=== PATIENT | female | born 1990 | race Caucasian/White ===

== ENCOUNTER 2018-05-26 09:50 | Emergency (ER) | payer OTHER, BC ==
[~2018-05-26] VITALS: Ht 157.5 cm; Wt 65.8 kg
--- OUTSIDE RECORDS SUMMARY | 2018-05-26 09:56 | XMS REPORT ---
Author Author TORO SELF Organization [employer] Address Unknown Phone Unavailable Care Team Providers Care Storm Door Maker Name Role Phone TORO SELF CP Unavailable Allergies No Known Allergies Problems Problem Type Condition Code Onset Dates Condition Status Assessment Right upper quadrant abdominal pain R10.11 Active Medications No Known Medications Results No Known Results Summary Purpose [employer] Submission
--- OUTSIDE RECORDS SUMMARY | 2018-05-26 09:56 | XMS REPORT ---
Author Author TORO SELF [facility] [employer] Address Unknown Phone Unavailable Care Team Providers Care Pipeline Operator Name Role Phone TORO SELF CP Unavailable Allergies, Adverse Reactions, Alerts Substance Reaction Event Type N.K.D.A. Info Not Available Non Drug Allergy Problems Problem Type Condition Code Onset Dates Condition Status Assessment Right upper quadrant abdominal pain R10.11 Active Assessment Epigastric pain R10.13 Active Medications No Known Medications Procedures Procedure Coding System Code Date Office Visit, New Pt., Level 3 CPT-4 22765 Jan 21, 2015 IMMUNOASSAY,INFECTIOUS AGENT CPT-4 65044 Jan 21, 2015 Vital Signs Date/Time: Jan 21, 2015 Temperature 98.9 F Weight 143.8 lbs Height 63 in BMI 25.47 Index Blood Pressure Diastolic 76 mmHg Blood Pressure Systolic 116 mmHg Cardiac Monitoring Heart Rate 112 bpm Results Name Result Date Reference Range Unit Abnormality Flag H PYLORI (IN HOUSE) Summary Purpose [employer] Submission
--- OUTSIDE RECORDS SUMMARY | 2018-05-26 09:56 | XMS REPORT | Continuity of Care Document ---
Author Author [facility] Organization [facility] Address Unknown Phone Unavailable Allergies Active Description Code Type Severity Reaction Onset Reported/Identified Relationship to Patient Clinical Status Yes No Known Drug Allergies [id number] Drug Allergy Unknown N/A 02/05/2015 Medications There is no data. Problems Date Dx Coded Attending Type Code Diagnosis Diagnosed By 01/30/2015 MADLFAUSTOA L SALES ENABLEMENT LEAD Ot R10.11 02/13/2015 MADL, TORO L SALES ENABLEMENT LEAD Ot R10.11 02/13/2015 MADL, TORO L SALES ENABLEMENT LEAD Ot R10.11 02/13/2015 MADL, TORO L SALES ENABLEMENT LEAD Ot R10.11 02/24/2015 MADL, TORO L SALES ENABLEMENT LEAD Ot R10.11 02/24/2015 MADL, TORO L SALES ENABLEMENT LEAD Ot R10.11 Procedures There is no data. Results There is no data. Encounters ACCT No. Visit Date/Time Discharge Status Pt. Type Provider Facility Loc./Unit Complaint [id number] 02/05/2015 10:05:00 02/05/2015 23:59:59 CLS Outpatient MADL, TORO L SALES ENABLEMENT LEAD [facility] CARD [id number] 01/27/2015 08:52:00 01/27/2015 23:59:59 CLS Outpatient MADL, TORO L SALES ENABLEMENT LEAD [facility] RAD
[2018-05-26] MEDS ORDERED: ACETAMINOPHEN 500 MG TAB (TYLENOL) PO ONE (10:45)
--- NOTE | 2018-05-26 10:51 | Diagnostic Imaging Report ---
Bilateral hand. INDICATION: Hand pain. Three views of each hand were obtained. There are no prior studies available for comparison. There is no fracture, dislocation or acute bony abnormality evident. The soft tissues are unremarkable. There is no radiopaque foreign body identified. IMPRESSION: There is no evidence for an acute bony abnormality of either hand. Dictated by: Dictated on workstation # [id number]
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
[2018-05-26 11:30] VITALS: BP 123/75
== END 2018-05-26 11:30 | disposition home or self-care (01) ==
LOC: EDUNIT# 09:50 → ER FS 09:52
DX: S60.221A Contusion of right hand, initial encounter (principal); S80.12XA Contusion of left lower leg, initial encounter; S80.11XA Contusion of right lower leg, initial encounter; S60.222A Contusion of left hand, initial encounter; F41.9 Anxiety disorder, unspecified; F17.210 Nicotine dependence, cigarettes, uncomplicated; V49.40XA Driver injured in collision with unspecified motor vehicles in traffic accident, initial encounter
CPT/HCPCS: 84703

== ENCOUNTER 2021-02-24 19:13 | Emergency (ER) | payer BC ==
[~2021-02-24] VITALS: Ht 162 cm; Wt 58.6 kg
--- NOTE | 2021-02-24 19:35 | ED Abdominal Pain ---
General Chief Complaint: Back Problems Stated Complaint: LOWER BACK PAIN,DIARRHEA Source of Information: Patient Exam Limitations: No Limitations History of Present Illness Date Seen by Provider: Feb 24, 2021 Time Seen by Provider: 19:14 Initial Comments 30-year-old female with no significant past medical history coming in due to 1 week of throbbing lower back pain that is her bilateral flanks, some vaginal bleeding, and lower abdominal cramping. She says she is had an IUD in place for over 4 years, and she does not usually have periods. She says it feels somewhat like menstruation, and somewhat like a UTI. Has had some intermittent nonbloody diarrhea. Her vaginal bleeding has slowed down significantly over the past couple of days. Denies any nausea, vomiting, weakness, numbness, chest pain, shortness of breath, cough, fever, chills, dysuria, or any other concerns. Allergies and Home Medications Allergies Coded Allergies: No Known Drug Allergies (Unverified , 05/26/18) Patient Home Medication List Home Medication List Reviewed: Yes Review of Systems Review of Systems Constitutional: No chills, No fever EENTM: No Blurred Vision Respiratory: Denies Cough Cardiovascular: Denies Chest Pain Gastrointestinal: Abdominal Pain, Diarrhea; Denies Nausea, Denies Vomiting Genitourinary: No Symptoms Reported Musculoskeletal: no symptoms reported Skin: no symptoms reported Psychiatric/Neurological: No Symptoms Reported Endocrine: No Symptoms Reported Hematologic/Lymphatic: No Symptoms Reported All Other Systems Reviewed Negative Unless Noted: Yes Past Cumtook-Uixdqa-Joionw Hx Patient Social History Tobacco Use?: Yes Tobacco type used: Cigarettes Smoking Status: Current Everyday Smoker Use of E-Cig and/or Vaping dev: No Substance use?: No Alcohol Use?: Yes Alcohol type: Beer, Hard Liquor, Wine Alcohol Frequency: Rarely Pt feels they are or have been: No Immunizations Up To Date Influenza Vaccine Up-to-Date: No; Not Current Seasonal Allergies Seasonal Allergies: No Past Medical History Surgeries: Yes Gallbladder, Vasectomy Respiratory: No Cardiac: No Neurological: No Genitourinary: No Gastrointestinal: No Musculoskeletal: No Endocrine: No HEENT: No Cancer: No Psychosocial: Yes Anxiety Integumentary: No Blood Disorders: No Adverse Reaction/Blood Tranf: No Physical Exam Vital Signs Vital Signs - First Documented 02/24/21 19:19 Temp 36.8 Pulse 78 Resp 16 B/P (MAP) 128/81 (97) Pulse Ox 99 O2 Delivery Room Air Capillary Refill : Height/Weight/BMI Height: 5'2.00" Weight: 145lbs. oz. 65.757874ri; BMI Method:Stated General Appearance: WD/WN, no apparent distress HEENT: PERRL/EOMI, normal ENT inspection, pharynx normal Neck: non-tender, full range of motion, supple, normal inspection Respiratory: chest non-tender, lungs clear, normal breath sounds, no respiratory distress, no accessory muscle use Cardiovascular: regular rate, rhythm, no edema, no murmur Gastrointestinal: normal bowel sounds, non tender; No distended, No guarding, No rebound Extremities: normal range of motion, non-tender, normal inspection, no pedal edema, no calf tenderness, normal capillary refill Back: normal inspection, no CVA tenderness, no vertebral tenderness Neurologic/Psychiatric: no motor/sensory deficits, alert, normal mood/affect Skin: normal color, warm/dry Lymphatic: no adenopathy Progress/Results/Core Measures Results/Orders Lab Results Laboratory Tests Test 02/24/21 19:21 02/24/21 19:38 Range/Units Urine Color YELLOW Urine Clarity SL CLOUDY Urine pH 6.5 5-9 Urine Specific [place] 1.020 1.016-1.022 Urine Protein NEGATIVE NEGATIVE Urine Glucose (UA) NEGATIVE NEGATIVE Urine Ketones NEGATIVE NEGATIVE Urine Nitrite NEGATIVE NEGATIVE Urine Bilirubin NEGATIVE NEGATIVE Urine Urobilinogen 0.2 < = 1.0 MG/DL Urine Leukocyte Esterase TRACE H NEGATIVE Urine RBC (Auto) 2+ H NEGATIVE Urine RBC >100 H /HPF Urine WBC 2-5 /HPF Urine Squamous Epithelial Cells 5-10 /HPF Urine Crystals PRESENT H /LPF Urine Amorphous Sediment MOD JAYLYN URATES H /LPF Urine Bacteria FEW H /HPF Urine Casts NONE /LPF Urine Mucus LARGE H /LPF Urine Culture Indicated YES Urine Test NEGATIVE NEGATIVE White Blood Count 10.7 4.3-11.0 10^3/uL Red Blood Count 4.76 3.80-5.11 10^6/uL Hemoglobin 14.4 11.5-16.0 g/dL Hematocrit 42 35-52 % Mean Corpuscular Volume 87 80-99 fL Mean Corpuscular Hemoglobin 30 25-34 pg Mean Corpuscular Hemoglobin Concent 35 32-36 g/dL Red Cell Distribution Width 13.1 10.0-14.5 % Platelet Count 277 130-400 10^3/uL Mean Platelet Volume 10.1 9.0-12.2 fL Neutrophils (%) (Auto) 52 42-75 % Lymphocytes (%) (Auto) 38 12-44 % Monocytes (%) (Auto) 6 0-12 % Eosinophils (%) (Auto) 4 0-10 % Basophils (%) (Auto) 1 0-10 % Neutrophils # (Auto) 5.5 1.8-7.8 X 10^3 Lymphocytes # (Auto) 4.1 H 1.0-4.0 X 10^3 Monocytes # (Auto) 0.6 0.0-1.0 X 10^3 Eosinophils # (Auto) 0.4 H 0.0-0.3 10^3/uL Basophils # (Auto) 0.1 0.0-0.1 10^3/uL My Orders Orders - KIMMIE GARCIA MD Hcg,Qualitative Urine (02/24/21 19:27) Ua Culture If Indicated (02/24/21 19:27) Cbc With Automated Diff (02/24/21 19:33) Comprehensive Metabolic Panel (02/24/21 19:33) Lipase (02/24/21 19:33) Crp Fs (02/24/21 19:33) Ketorolac Injection (Toradol Injection) (02/24/21 19:45) Urine Culture (02/24/21 19:21) Medications Given in ED Current Medications Medications Dose Ordered Sig/Yahir Route Start Time Stop Time Status Last Admin Dose Admin Ketorolac Tromethamine 15 mg ONCE ONCE IVP 02/24/21 19:45 02/24/21 19:46 DC 02/24/21 19:44 15 MG Vital Signs/I&O 02/24/21 19:19 Temp 36.8 Pulse 78 Resp 16 B/P (MAP) 128/81 (97) Pulse Ox 99 O2 Delivery Room Air Progress Progress Note : Progress Note 30-year-old female with above history coming in due to lower back pain, vaginal bleeding, and abdominal cramping. ABCs were intact and vitals were stable on presentation. Physical exam reassuring with a soft and nontender abdomen. No flank pain to percussion. Differential includes UTI versus pyelonephritis versus menstruation versus less likely ectopic versus less likely appendicitis versus infectious etiology. Overall she is very well-appearing. Urinalysis sent as well as urine test which was negative. Basic labs including inflammatory markers sent. She was given IV Toradol for pain control. Labs otherwise unremarkable including normal white blood cell count and inflammatory markers. test negative. Urinalysis with blood which is likely from her menstruating as well as leukocyte esterace. Essentially is equivocal for UTI. Given her symptoms we will go ahead and treat it. Repeat abdominal exam reassuring with no significant tenderness. I believe she is stable for discharge with outpatient follow-up. She was sent home with strict return precautions. Departure Impression Primary Impression: UTI (urinary tract infection) Qualified Codes: N30.00 - Acute cystitis without hematuria Disposition: HOME, SELF-CARE Condition: Stable Departure-Patient Inst. Decision time for Depature: 20:30 Referrals: NO,LOCAL PHYSICIAN (PCP/Family) Primary Care Physician Patient Instructions: Urinary Tract Infection, Adult ED Add. Discharge Instructions: You were seen in the emergency department for lower back pain, diarrhea, vaginal bleeding, and lower abdominal cramping. It does appear based on your test that you are on your period, but you are not . It also appears like you could have a UTI. We will send you home with an antibiotic and then you will take this for the next 5 days. Take ibuprofen 600 mg every 6 hours for pain. If you have pain on top of this take Tylenol 1000 mg every 6-8 hours. If you begin having vomiting, cough, fever, or any other concerns then I would recommend you come back to get tested for COVID or go to your regular doctor. Scripts Cefdinir (Cefdinir) 300 Mg Capsule 300 MG PO BID for 5 Days, #10 CAP 0 Refills Prov: KIMMIE GARCIA MD 02/24/21 KIMMIE GARCIA MD Feb 24, 2021 19:35
[2021-02-24] MEDS ORDERED: KETOROLAC 30 MG/ML VIAL IVP ONE (19:45)
[2021-02-24 19:46] LABS: WHITE BLOOD COUNT 10.7 10^3/uL (4.3-11.0)
[2021-02-24 19:47] LABS: BASOPHILS # (AUTO) 0.1 10^3/uL (0.0-0.1); BASOPHILS % (AUTO) 1 % (0-10); EOSINOPHILS # (AUTO) 0.4 10^3/uL (0.0-0.3); EOSINOPHILS % (AUTO) 4 % (0-10); HEMATOCRIT 42 % (35-52); HEMOGLOBIN 14.4 g/dL (11.5-16.0); LYMPHOCYTES # (AUTO) 4.1 X 10^3 (1.0-4.0); LYMPHOCYTES % (AUTO) 38 % (12-44); MEAN CORPUSCULAR HEMOGLOBIN 30 pg (25-34); MEAN CORPUSCULAR HGB CONC 35 g/dL (32-36); MEAN CORPUSCULAR VOLUME 87 fL (80-99); MEAN PLATELET VOLUME 10.1 fL (9.0-12.2); MONOCYTES # (AUTO) 0.6 X 10^3 (0.0-1.0); MONOCYTES % (AUTO) 6 % (0-12); NEUTROPHILS # (AUTO) 5.5 X 10^3 (1.8-7.8); NEUTROPHILS % (AUTO) 52 % (42-75); PLATELET COUNT 277 10^3/uL (130-400)
[2021-02-24 19:54] LABS: BILIRUBIN,URINE NEGATIVE (NEGATIVE); CLARITY,URINE SL CLOUDY; COLOR,URINE YELLOW; GLUCOSE, URINE (UA) NEGATIVE (NEGATIVE); KETONES,URINE NEGATIVE (NEGATIVE); LEUKOCYTE ESTERASE ,URINE TRACE (NEGATIVE); NITRITE,URINE NEGATIVE (NEGATIVE); PH,URINE 6.5 (5-9); PROTEIN,URINE NEGATIVE (NEGATIVE)
[2021-02-24 19:56] LABS: BACTERIA,URINE FEW /HPF; RBC,URINE >100 /HPF
[2021-02-24 19:57] LABS: AMORPHOUS SEDIMENT,UR MOD AMOR URATES /LPF
[2021-02-24 20:07] LABS: ALANINE AMINOTRANSFERASE 8 U/L (0-55); ALKALINE PHOSPHATASE 62 U/L (40-136); BILIRUBIN,TOTAL 0.6 MG/DL (0.1-1.0); BUN/CREATININE RATIO 14; CALCIUM 9.2 MG/DL (8.5-10.1); CARBON DIOXIDE 23 MMOL/L (21-32); CHLORIDE 105 MMOL/L (98-107); CREATININE SERUM 0.63 MG/DL (0.60-1.30); GFR ESTIMATED 110; GLUCOSE 108 MG/DL (70-105); POTASSIUM 3.8 MMOL/L (3.6-5.0); SODIUM 138 MMOL/L (135-145)
[2021-02-24 20:08] LABS: ALBUMIN 4.3 GM/DL (3.2-4.5); LIPASE 56 U/L (8-78); TOTAL PROTEIN 7.3 GM/DL (6.4-8.2)
[2021-02-24] MEDS ORDERED: CEFD300C3 PO (20:09)
[2021-02-24] MEDS ORDERED: CEFDINIR 300 MG (OMNICEF) CAP PO ONE (20:15)
[2021-02-24 20:24] VITALS: BP 125/78
[2021-02-24] MEDS ORDERED: RX-CEFDINIR 300 MG CAP PPK #2 PO SCH (21:00)
== END 2021-02-24 20:18 | disposition home or self-care (01) ==
LOC: EDUNIT# 19:13 → ER FS 19:15
DX: N39.0 Urinary tract infection, site not specified (principal); F17.210 Nicotine dependence, cigarettes, uncomplicated
CPT/HCPCS: 36415; 80053; 81000; 83690; 84703; 85025; 86141; 87088; 99284

== ENCOUNTER 2021-02-26 01:06 | Emergency (ER) | payer BC ==
[~2021-02-26] VITALS: Ht 163 cm; Wt 58.5 kg
[~2021-02-26 01:06] MED LIST: CEFD300C3 PO
[2021-02-26] MEDS ORDERED: METOCLOPRAMIDE INJ 10 MG/2 ML (REGLAN) IVP STA (01:17)
[2021-02-26] MEDS ORDERED: NS IV 1000 ML 1,000 ML IV STA (01:17)
[2021-02-26] MEDS ORDERED: KETOROLAC 30 MG/ML VIAL IVP STA (01:17)
--- NOTE | 2021-02-26 01:17 | ED GU-Female ---
General Stated Complaint: RP FLANK PAIN History of Present Illness Date Seen by Provider: Feb 26, 2021 Time Seen by Provider: 01:15 Initial Comments 30-year-old female presents with right flank pain that goes into her groin. She cannot find a comfortable position. Patient reports that she was seen yesterday with some minor pain but is gotten suddenly worse. Yesterday she was diagnosed with a urinary tract infection however she did have significant amount of blood in her urine. She reports that she is having some chills and also gets little bit sweaty today. Especially associated with the pain she has some nausea but no vomiting Allergies and Home Medications Allergies Coded Allergies: No Known Drug Allergies (Unverified , 05/26/18) Patient Home Medication List Home Medication List Reviewed: Yes Cefdinir (Cefdinir) 300 Mg Capsule, 300 MG PO BID Prescribed by: KIMMIE GARCIA on 02/24/212008 Hydrocodone/Acetaminophen (Hydrocodone-Acetamin 5-325 mg) 1 Each Tablet, 1 TAB PO Q8H PRN for PAIN-MODERATE (5-7) Prescribed by: JOIE STRAUSS on 02/26/21 021 Ondansetron (Ondansetron Odt) 4 Mg Tab.rapdis, 4 MG PO Q6H PRN for NAUSEA/VOMITING Prescribed by: JOIE STRAUSS on 02/26/21 0209 Review of Systems Review of Systems Constitutional: chills EENTM: no symptoms reported Respiratory: no symptoms reported Cardiovascular: no symptoms reported Gastrointestinal: see HPI, nausea Genitourinary: see HPI, flank pain Musculoskeletal: back pain Skin: no symptoms reported Psychiatric/Neurological: No Symptoms Reported Endocrine: No Symptoms Reported Hematologic/Lymphatic: No Symptoms Reported Past Xqcvuko-Uiilgd-Lkomdz Hx Seasonal Allergies Seasonal Allergies: No Past Medical History Surgeries: Yes Gallbladder, Vasectomy Respiratory: No Cardiac: No Neurological: No Genitourinary: No Gastrointestinal: No Musculoskeletal: No Endocrine: No HEENT: No Cancer: No Psychosocial: Yes Anxiety Integumentary: No Blood Disorders: No Adverse Reaction/Blood Tranf: No Physical Exam Vital Signs Vital Signs - First Documented 02/26/21 01:13 Temp 36.8 Pulse 65 Resp 16 B/P (MAP) 110/67 (81) Pulse Ox 100 O2 Delivery Room Air Capillary Refill : Height, Weight, BMI Height: 5'2.00" Weight: 145lbs. oz. 65.013096vd; 22.00 BMI Method:Stated General Appearance: mild distress Cardiovascular: normal peripheral pulses, regular rate, rhythm Respiratory: no respiratory distress, no accessory muscle use Gastrointestinal: non tender, soft Back: CVA tenderness (R) Extremities: normal range of motion Neurologic/Psychiatric: alert, normal mood/affect, oriented x 3 Skin: normal color, warm/dry, tattoos/piercings Progress/Results/Core Measures Suspected Sepsis SIRS Temperature: Pulse: Respiratory Rate: Blood Pressure / Mean: Results/Orders My Orders Orders - JOIE STRAUSS DO Metoclopramide Injection (Reglan Injecti (02/26/21 01:17) Ns Iv 1000 Ml (Sodium Chloride 0.9%) (02/26/21 01:17) Ed Iv/Invasive Line Start (02/26/21 01:17) Ketorolac Injection (Toradol Injection) (02/26/21 01:17) Ct Abdomen/Pelvis Wo (02/26/21 01:17) Vital Signs/I&O 02/26/21 01:13 Temp 36.8 Pulse 65 Resp 16 B/P (MAP) 110/67 (81) Pulse Ox 100 O2 Delivery Room Air Capillary Refill : Progress Note : Progress Note Patient with a 3 mm right kidney stone at the UV junction. I will give her a couple pain medicine and some nausea medicine. Patient should follow-up with her primary care provider if symptoms are not improved over the next week. Patient stable and discharged home Diagnostic Imaging Diagonstic Imaging: CT Plain Films/CT/US/NM/MRI: abdomen Comments Moderate right hydroureteronephrosis with a small right UVJ calculus Reviewed: [facility] Impression Primary Impression: Calculus of distal right ureter Disposition: HOME, SELF-CARE Condition: Stable Departure-Patient Inst. Referrals: NO,LOCAL PHYSICIAN (PCP/Family) Primary Care Physician Patient Instructions: Renal Colic (DC), Kidney Stone, Adult ED Add. Discharge Instructions: Drink plenty of fluids Follow-up with your primary care provider if symptoms are not improved over the next 4 to 5 days. Scripts Hydrocodone/Acetaminophen (Hydrocodone-Acetamin 5-325 mg) 1 Each Tablet 1 TAB PO Q8H PRN for PAIN-MODERATE (5-7), #5 TAB Prov: JOIE STRAUSS DO 02/26/21 Ondansetron (Ondansetron Odt) 4 Mg Tab.rapdis 4 MG PO Q6H PRN for NAUSEA/VOMITING, #20 TAB 0 Refills Prov: JOIE STRAUSS DO 02/26/21 JOIE STRAUSS DO Feb 26, 2021 01:17
[2021-02-26] MEDS ORDERED: ACHD5005 PO (02:09)
[2021-02-26] MEDS ORDERED: ONDA4TAB11 PO (02:09)
[2021-02-26 02:24] VITALS: BP 104/60
--- NOTE | 2021-02-26 04:16 | Diagnostic Imaging Report ---
EXAMINATION: CT abdomen and pelvis without contrast. TECHNIQUE: Multiple contiguous axial images were obtained through the abdomen and pelvis without the use of intravenous contrast. All CT scans use one or more of the following dose optimizing techniques: automated exposure control, MA and/or KvP adjustment based on patient size and exam type or iterative reconstruction. HISTORY: right flank pain, hematuria COMPARISON: None available. FINDINGS: Lung bases: The lung bases are clear. Solid organs: The liver is normal. The gallbladder is surgically absent. There is no biliary ductal dilation. Pancreas is normal. Spleen is normal. Adrenal glands are normal. There is a 0.5 cm calculus at the right ureterovesicular junction of the distal ureter. This results in moderate hydronephrosis and hydroureter on the right. Left kidney is unremarkable. Bowel: The stomach and small bowel are normal without obstruction. The colon and appendix are normal. Peritoneum: There is no intraperitoneal free fluid or free air. No suspicious lymphadenopathy. Vasculature: Normal without aneurysm. Musculoskeletal: No suspicious osseous lesion or compression fracture. Pelvis: An IUD is present within the uterus. The urinary bladder is normal. IMPRESSION: 1. A 0.5 cm calculus at the right ureterovesicular junction resulting in moderate right hydronephrosis and hydroureter. Dictated by: Dictated on workstation # [id number]
== END 2021-02-26 02:24 | disposition home or self-care (01) ==
LOC: EDUNIT# 01:06 → ER FS 01:08
DX: N13.2 Hydronephrosis with renal and ureteral calculous obstruction (principal)
CPT/HCPCS: 74176